=== PATIENT | male | born 2005 | race African-American/Black ===

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

== ENCOUNTER 2024-05-08 22:17 | Emergency (ER) | payer BC, SELFPAY ==
[2024-05-08 22:18] VITALS: BP 152/112; PULSE 81; RESP 20; TEMP 37; O2SAT 100; BMI 25.8
[2024-05-08] MEDS: AMOXICILLIN/CLAVULANATE POTASSIUM 875/125MG TABLET 1 EACH PO (22:40)
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
[2024-05-08 22:50] VITALS: BP 150/99; PULSE 78; RESP 20; TEMP 36.8; O2SAT 99
== END 2024-05-08 22:52 | disposition home or self-care (01) ==
PROVIDERS: Emergency Provider Student in an Organized Health Care Education/Training Program
DX: K02.9 Dental caries, unspecified (principal)
CPT/HCPCS: 99283

== ENCOUNTER 2024-07-28 13:20 | Emergency (ER) | payer BC, SELFPAY ==
[2024-07-28 13:21] VITALS: BP 159/91; PULSE 88; RESP 16; TEMP 36.9; O2SAT 98; BMI 26.9
--- NOTE | 2024-07-28 14:20 | CT_ITS ---
PROCEDURE INFORMATION: Exam: CT Abdomen And Pelvis With Contrast Exam date and time: 07/28/2024 3:04 PM Age: 19 years old Clinical indication: Abdominal pain; Additional info: Abdominal & back pain TECHNIQUE: Imaging protocol: Computed tomography of the abdomen and pelvis with contrast. Radiation optimization: All CT scans at this facility use at least one of these dose optimization techniques: automated exposure control; mA and/or kV adjustment per patient size (includes targeted exams where dose is matched to clinical indication); or iterative reconstruction. Contrast material: ISOVUE; Contrast volume: 75 ml; Contrast route: IV; COMPARISON: No relevant prior studies available. FINDINGS: Liver: The liver is normal in appearance. No focal liver mass or intrahepatic biliary dilatation. Gallbladder and biliary ducts: The gallbladder is unremarkable with no calcified stones visualized and no strandy inflammatory changes surrounding the gallbladder. Pancreas: The pancreas is normal in appearance. No evidence of pancreatic ductal dilatation. Spleen: Splenomegaly. The spleen measures about 13.8 cm. Adrenal glands: The adrenal glands are normal in appearance. Kidneys and ureters: The kidneys are normal in appearance. No evidence of hydronephrosis or hydroureter. No nephroureteral calculi are identified. Stomach and bowel: The small bowel loops are not thickened and are nondilated. The colon is unremarkable. Appendix: No evidence of appendicitis. Intraperitoneal space: Trace pelvic ascites. Vasculature: Unremarkable. No abdominal aortic aneurysm. Lymph nodes: Several small right lower quadrant mesenteric lymph nodes. Consider mesenteric lymphadenitis. Urinary bladder: Unremarkable as visualized. Reproductive: Unremarkable as visualized. Bones/joints: Unremarkable. No acute fracture. Soft tissues: Unremarkable. IMPRESSION: 1. Splenomegaly. 2. Trace deep pelvic ascites of indeterminate etiology. 3. Normal appendix. 4. Several small right lower quadrant mesenteric lymph nodes. Consider mesenteric lymphadenitis.
[2024-07-28 14:31] LABS: Basophils # 0.1 K/mm3 (0-0.2); Basophils % 1.4 % (0.1-2.0); Eosinophils # 0.1 K/mm3 (0.0-0.4); Eosinophils % 0.9 % (0.1-12.0); Hematocrit 46.7 % (42.0-52.0); Hemoglobin 15.4 g/dL (14.1-18.0); Lymphocytes % 50.4 % (10-50); Mean Corpuscular Hemoglobin 30.2 pg (27.0-31.2); Mean Corpuscular Volume 91.4 fl (80-94); Mean Platelet Volume 7.1 fl (7.4-10.4); Monocytes # 0.5 K/mm3 (0.1-1.0); Monocytes % 7.9 % (1.7-9.3); Neutrophils # 2.3 K/mm3 (1.8-7.8); Neutrophils % 39.4 % (37.0-80.0); Platelet Count 177 K/mm3 (142-424); Red Blood Count 5.11 M/mm3 (4.60-6.20); Red Cell Distribution Width 13.2 % (11.5-17.5); White Blood Count 5.9 K/mm3 (4.5-13.0)
[2024-07-28 14:33] LABS: Albumin Level 4.1 g/dl (3.5-5.0); Chloride 105 mmol/L (98-107); Potassium 3.5 mmoL/L (3.5-5.1); Sodium 137 mmol/L (136-145)
[2024-07-28 14:36] LABS: Alanine Aminotransferase 190 U/L (12-78); Albumin/Globulin Ratio 1.4 (1.1-1.8); Alkaline Phosphatase 79 U/L (38-126); Anion Gap 7.5 mEq/L (5-15); Aspartate Amino Transferase 83 U/L (17-59); Bilirubin,Total 0.8 mg/dl (0.2-1.3); Blood Urea Nitrogen 14 mg/dl (9-20); Carbon Dioxide 28 mmol/L (22.0-30.0); Creatinine Clearance Estimated 178 mL/min (50-200); Estimated Glomerular Filt Rate 123 ml/min (>60); GFR (African American) 149 ML/MIN (>60); MANUAL DIFFERENTIAL MANUAL DIFFERENTIAL (MANUAL DIFF); Total Protein,Serum 7.1 g/dl (6.3-8.2)
[2024-07-28 14:37] LABS: Amylase 89 U/L (30-110); Calcium 8.8 mg/dl (8.4-10.2); Creatine Kinase 89 U/L (55-170); Glucose 108 mg/dl (74-100); Lipase 37 U/L (23-300)
[2024-07-28] MEDS: 0.9 % SODIUM CHLORIDE 1000ML 1,000 ML 999 ML IV (14:38)
[2024-07-28] MEDS: ONDANSETRON 4MG/2ML VIAL 4 MG IV (14:38)
[2024-07-28] MEDS: KETOROLAC 30MG/ML VIAL 30 MG IV (14:38)
[2024-07-28 14:46] LABS: CKMB Relative Index 0.9 U/L (0-4.0); Creatine Kinase MB 0.8 ng/ml (0.0-2.03)
[2024-07-28 14:49] LABS: Troponin I < 0.01 ng/ml (0.00-0.034)
--- NOTE | 2024-07-28 14:59 | PC.NURSE ---
PT TO CT
[2024-07-28] MEDS: IOPAMIDOL-370 (76%);100ML BOTTLE 75 ML IV (15:04)
[2024-07-28] MEDS: SODIUM CHLORIDE 0.9% 10ML SYR (RAD ONLY) 10 ML IV (15:04)
--- NOTE | 2024-07-28 15:07 | PC.NURSE ---
PT RETURNED FROM CT
--- NOTE | 2024-07-28 15:11 | ED_ITS ---
<Statement entered by Aura Melchor DO - 07/28/24 18:27> I was consulted by the JESSENIA, and we discussed the complexity of the problems being addressed. I approved the treatment and management plan for this patient's care in the emergency department, thus performing a substantive portion of the medical decision making. Aura Melchor DO Discharge Plan Disposition Patient Disposition: Home, Self-Care Condition: Good Prescriptions Prescriptions: New ondansetron 4 mg tablet,disintegrating 4 mg PO DAILY 4 Days Qty: 4 0RF No Action prazosin 1 mg capsule 1 mg PO QHS Qty: 30 1RF aripiprazole [Abilify] 10 mg tablet See Rx Instructions PO QHS Qty: 30 1RF Rx Instructions: take 1/2 tablet; then starting on 05/12/21 take whole tablet PO every day at bedtime; amoxicillin-pot clavulanate 875-125 mg tablet 1 tab PO BID 10 Days Qty: 20 0RF Referrals Follow up/Referrals: Chico Wood MD [Staff Physician] - See instructions Provider,MD Vero [Primary Care Provider] - See instructions Activity Restrictions/Add. Instructions Additional Instructions/Restrictions: Increase fluids and rest. Take Zofran for nausea as needed. Please follow with your primary care on Tuesday for further instructions. I suggest keeping your appointment for the liver ultrasound as scheduled. Call to follow-up with Dr. Wood the GI doctor. Clinical Impressions Clinical Impression: Viral gastroenteritis, Acute mesenteric lymphadenitis Instructions Patient Instructions: DI for Acute Abdominal Pain Print Language Print Language: Micronesian Discharge ED Provider: Aura Melchor General Adult HPI <Leann Rueda (ED), CRYOGENICS REPAIRER - Last Filed: 07/28/24 17:54> General Chief complaint: Abdominal Pain Stated complaint: Abdominal Pain Time Seen by Provider: 07/28/24 14:15 Mode of Arrival: Ambulatory Source of Information: Patient Limitations: No Limitations Description of Symptoms (Recalled from ER Triage Doc. by RN): belly pain,back pain History of Present Illness HPI narrative: This is a 19-year-old male who presents to the ED today for complaint of 3 weeks of abdominal pain. He states that it is in his lower abdomen that moves to his right back. He states that he has been having nausea and vomiting for the past 3 days. Every time he eats or drinks he vomits. He tells me he is even vomiting water at this time. Patient has a primary care in [place] and he went to her recently and had blood in his urine. She also told him that his liver enzymes were elevated. He is scheduled for an ultrasound on his liver on Tuesday but was told if pain got worse he was to come in to the ED. Patient does admit to some dizziness and lightheadedness. No other associated signs or symptoms at this time. Related Data Previous Rx's ?Medication ?Instructions ?Recorded aripiprazole 10 mg tablet (Abilify) See Rx Instructions PO QHS #30 tabs 04/28/21 prazosin 1 mg capsule 1 mg PO QHS #30 caps 04/28/21 amoxicillin 875 mg-potassium 1 tab PO BID 10 days #20 tabs 05/08/24 clavulanate 125 mg tablet ondansetron 4 mg disintegrating 4 mg PO DAILY 4 days #4 tabs 07/28/24 tablet Allergies Allergy/AdvReac Type Severity Reaction Status Date / Time No Known Allergies Allergy Unverified 01/16/21 13:17 PFSH <Leann Rueda (ED), CRYOGENICS REPAIRER - Last Filed: 07/28/24 17:54> [facility] Disclaimer: The information contained in this section may have been updated after the patient was seen, as this information can be updated by other users. Social History (Updated 05/08/24 @ 22:41 by Mi Maldonado MD) Smoking Status: Never smoker alcohol intake: never substance use type: denies use current occupational status: student Travel in the last 8 weeks: None number of children: 0 <Leann Rueda (ED), CRYOGENICS REPAIRER - Last Filed: 07/28/24 17:54> ROS Obtained: Yes Systems reviewed as appropriate & no additional complaints except as documented Constitutional Constitutional: Reports system reviewed and no additional complaints, except as documented and Reports as per HPI Physical Exam <Leann Rueda (ED), CRYOGENICS REPAIRER - Last Filed: 07/28/24 17:54> General General appearance: alert and in no apparent distress Head Head exam: atraumatic and normocephalic Eye Eye exam: Present normal appearance, PERRL and EOMI ENT ENT exam: Present normal exam, normal oropharynx and mucous membranes moist Neck Neck exam: Present normal inspection, full ROM and trachea midline Chest Chest inspection: Present normal inspection Respiratory Respiratory exam: Present normal lung sounds bilaterally Cardiovascular Cardiovascular exam: Present regular rate, normal rhythm, normal heart sounds, +S1 and +S2 Abdominal Exam Abdominal exam: Present soft, tenderness (Patient has tenderness across the entire low abdomen) and normal bowel sounds Extremities Exam Extremities exam: Present normal inspection, full ROM and normal capillary refill Back Exam Back exam: Present normal inspection Neurological Exam Neurological exam: Present alert, oriented X3 and normal gait Skin Skin exam: Present warm, dry and intact Medical Decision Making <Leann Rueda (ED), CRYOGENICS REPAIRER - Last Filed: 07/28/24 17:54> Medical Records Screening: Per USPSTF and CDC recommendations, given the prevalence of disease in our region, it is our hospital?s policy to screen for HIV and viral Hepatitis for all patients aged 18 and over and those with ongoing risk factors. Musa Inquiry Pt receiving controlled substance: No Musa was queried for this patient: No Vital Signs: 07/28/24 13:21 07/28/24 16:35 Temperature 98.4 F 98.3 F Temperature Source Oral Pulse Rate 72 Pulse Rate [Right] 88 Respiratory Rate 16 18 Blood Pressure 129/77 Blood Pressure [Right Arm] 159/91 H Blood Pressure Mean [Right Arm] 113 02 Sat by Pulse Oximetry 98 Lab Data Lab Results 07/28/24 13:25: WBC 5.9, RBC 5.11, Hgb 15.4, Hct 46.7, MCV 91.4, MCH 30.2, MCHC 33.0, RDW 13.2, Plt Count 177, MPV 7.1 L, Neut % (Auto) 39.4, Lymph % (Auto) 50.4 H, Hyde % (Auto) 7.9, Eos % (Auto) 0.9, Baso % (Auto) 1.4, Neut # (Auto) 2.3, Lymph # (Auto) 3.0, Hyde # (Auto) 0.5, Eos # (Auto) 0.1, Baso # (Auto) 0.1, Total Counted 100, Neutrophils % (Manual) 47, Lymphocytes % (Manual) 50, Monocytes % (Manual) 3, Platelet Estimate Normal, RBC Morphology Normal, Sodium 137, Potassium 3.5, Chloride 105, Carbon Dioxide 28, Anion Gap 7.5, BUN 14, Creatinine 0.80, Estimated Creat Clear 178, Estimated GFR 123, Est GFR ( Amer) 149, Glucose 108 H, Calcium 8.8, Total Bilirubin 0.8, AST 83 H, ALT 190 H, Alkaline Phosphatase 79, Total Creatine Kinase 89, CK-MB (CK-2) 0.8, CK-MB (CK- 2) Rel Index 0.9, Troponin I < 0.01, Total Protein 7.1, Albumin 4.1, Globulin 3.0, Albumin/Globulin Ratio 1.4, Amylase 89, Lipase 37 07/28/24 15:30: Urine Color Yellow, Urine Appearance Clear, Urine pH 6.5, Ur Specific [place] 1.010, Urine Protein Negative, Urine Glucose (UA) Negative, Urine Ketones Negative, Urine Blood Negative, Urine Nitrate Negative, Urine Bilirubin Negative, Urine Urobilinogen 4.0, Ur Leukocyte Esterase Negative, Urine RBC Occasional, Urine WBC None, Ur Squamous Epith Cells None, Urine Bacteria None 07/28/24 13:25 07/28/24 13:25 Orders (Tests/Meds): ED MEDICATIONS Discontinued Medications Generic Name Dose Route Start Last Admin Trade Name Freq PRN Reason Stop Dose Admin Sodium Chloride 1,000 mls @ 999 mls/hr 07/28/24 14:30 07/28/24 14:38 Sod Chlor 0.9% 1000ml Bag IV 07/28/24 15:30 999 mls/hr .Q1H1M PONCHO Administration Iopamidol 75 ml 07/28/24 15:03 07/28/24 15:04 Iopamidol-370 (76%);100ml Bottle IV 07/28/24 15:04 75 ml ONCE ONE Administration Ketorolac Tromethamine 30 mg 07/28/24 14:20 07/28/24 14:38 Ketorolac 30mg/Ml Vial IV 07/28/24 14:21 30 mg ONCE ONE Administration Ondansetron HCl 4 mg 07/28/24 14:20 07/28/24 14:38 Ondansetron 4mg/2ml Vial IV 07/28/24 14:21 4 mg ONCE ONE Administration Sodium Chloride 10 ml 07/28/24 15:03 07/28/24 15:04 Sodium Chloride 0.9% 10ml Syr (Rad Only) IV 07/28/24 15:04 10 ml ONCE ONE Administration ORDERS Category Date Time Status CT abdomen pelvis w con Stat Cat Scan 07/28/24 14:20 Completed Amylase Stat Lab 07/28/24 13:25 Completed Cardiac Enzymes Stat Lab 07/28/24 13:25 Completed Complete Blood Count Auto Diff Stat Lab 07/28/24 13:25 Completed Comprehensive Metabolic Panel Stat Lab 07/28/24 13:25 Completed HIV (1&2) Antibody Rapid Stat Lab 07/28/24 13:25 Received Hep C Ab with Reflex to RNA Stat Lab 07/28/24 13:25 Received Lipase Stat Lab 07/28/24 13:25 Completed Urinalysis and Microscopic Stat Lab 07/28/24 15:30 Completed Medical Decision Narrative: Insert review patient is a 19-year-old male presenting to the emergency department for evaluation of lower abdominal pain radiating to right back, nausea and vomiting. Patient is hemodynamically stable and nontoxic-appearing upon arrival, afebrile. Differential diagnosis includes kidney stone, bowel obstruction, UTI, amongst other things. Workup will be conducted with hematologic labs, specific imaging, provocative tests. Initial inventions include crystalloid bolus, nausea meds. Initial workup reviewed by me [hematologic labs are remarkable for:]. [Imaging informally interpreted by me and remarkable for:] [Formal imaging read remarkable for:] Upon repeat evaluation [patient's pain is improved, appears better perfused, appears the same, appears worse, etc.]. Due to this [additional interventions, patient is appropriate for discharge, patient requires admission, etc.]. [ If patient requires admission or consultation say I had an interactive discussion with X Consideration of test and reason for deferment Putting patient in observation care Social determinants of health making workup or disposition difficult (undomiciled, polysubstance abuse, etc.) Independently reviewing hospital records, previous imaging, you must explicitly state what you are reviewing (example, cardiology consultation note from May 2023) <Aura Melchor, DO - Last Filed: 07/28/24 18:27> Vital Signs: 07/28/24 13:21 07/28/24 16:35 Temperature 98.4 F 98.3 F Temperature Source Oral Pulse Rate 72 Pulse Rate [Right] 88 Respiratory Rate 16 18 Blood Pressure 129/77 Blood Pressure [Right Arm] 159/91 H Blood Pressure Mean [Right Arm] 113 02 Sat by Pulse Oximetry 98 Lab Data Lab Results 07/28/24 13:25: WBC 5.9, RBC 5.11, Hgb 15.4, Hct 46.7, MCV 91.4, MCH 30.2, MCHC 33.0, RDW 13.2, Plt Count 177, MPV 7.1 L, Neut % (Auto) 39.4, Lymph % (Auto) 50.4 H, Hyde % (Auto) 7.9, Eos % (Auto) 0.9, Baso % (Auto) 1.4, Neut # (Auto) 2.3, Lymph # (Auto) 3.0, Hyde # (Auto) 0.5, Eos # (Auto) 0.1, Baso # (Auto) 0.1, Total Counted 100, Neutrophils % (Manual) 47, Lymphocytes % (Manual) 50, Monocytes % (Manual) 3, Platelet Estimate Normal, RBC Morphology Normal, Sodium 137, Potassium 3.5, Chloride 105, Carbon Dioxide 28, Anion Gap 7.5, BUN 14, Creatinine 0.80, Estimated Creat Clear 178, Estimated GFR 123, Est GFR ( Amer) 149, Glucose 108 H, Calcium 8.8, Total Bilirubin 0.8, AST 83 H, ALT 190 H, Alkaline Phosphatase 79, Total Creatine Kinase 89, CK-MB (CK-2) 0.8, CK-MB (CK- 2) Rel Index 0.9, Troponin I < 0.01, Total Protein 7.1, Albumin 4.1, Globulin 3.0, Albumin/Globulin Ratio 1.4, Amylase 89, Lipase 37 07/28/24 15:30: Urine Color Yellow, Urine Appearance Clear, Urine pH 6.5, Ur Specific [place] 1.010, Urine Protein Negative, Urine Glucose (UA) Negative, Urine Ketones Negative, Urine Blood Negative, Urine Nitrate Negative, Urine Bilirubin Negative, Urine Urobilinogen 4.0, Ur Leukocyte Esterase Negative, Urine RBC Occasional, Urine WBC None, Ur Squamous Epith Cells None, Urine Bacteria None Orders (Tests/Meds): ED MEDICATIONS Discontinued Medications Generic Name Dose Route Start Last Admin Trade Name Freq PRN Reason Stop Dose Admin Sodium Chloride 1,000 mls @ 999 mls/hr 07/28/24 14:30 07/28/24 14:38 Sod Chlor 0.9% 1000ml Bag IV 07/28/24 15:30 999 mls/hr .Q1H1M PONCHO Administration Iopamidol 75 ml 07/28/24 15:03 07/28/24 15:04 Iopamidol-370 (76%);100ml Bottle IV 07/28/24 15:04 75 ml ONCE ONE Administration Ketorolac Tromethamine 30 mg 07/28/24 14:20 07/28/24 14:38 Ketorolac 30mg/Ml Vial IV 07/28/24 14:21 30 mg ONCE ONE Administration Ondansetron HCl 4 mg 07/28/24 14:20 07/28/24 14:38 Ondansetron 4mg/2ml Vial IV 07/28/24 14:21 4 mg ONCE ONE Administration Sodium Chloride 10 ml 07/28/24 15:03 07/28/24 15:04 Sodium Chloride 0.9% 10ml Syr (Rad Only) IV 07/28/24 15:04 10 ml ONCE ONE Administration ORDERS Category Date Time Status CT abdomen pelvis w con Stat Cat Scan 07/28/24 14:20 Completed Amylase Stat Lab 07/28/24 13:25 Completed Cardiac Enzymes Stat Lab 07/28/24 13:25 Completed Complete Blood Count Auto Diff Stat Lab 07/28/24 13:25 Completed Comprehensive Metabolic Panel Stat Lab 07/28/24 13:25 Completed HIV (1&2) Antibody Rapid Stat Lab 07/28/24 13:25 Received Hep C Ab with Reflex to RNA Stat Lab 07/28/24 13:25 Received Lipase Stat Lab 07/28/24 13:25 Completed Urinalysis and Microscopic Stat Lab 07/28/24 15:30 Completed Medical Decision Narrative: patient is a 19-year-old male presenting to the emergency department for evaluation of lower abdominal pain radiating to right back, nausea and vomiting. Patient is hemodynamically stable and nontoxic-appearing upon arrival, afebrile. Differential diagnosis includes kidney stone, bowel obstruction, UTI, amongst other things. Workup will be conducted with hematologic labs, specific imaging, provocative tests. Initial inventions include crystalloid bolus, nausea meds. Initial workup reviewed by me and patient had mild transaminitis noted. He had trace fluid fluid in the pelvis on CT scan with mesenteric adenitis but no other acute findings. Gallbladder and liver are normal, and no evidence of other acute surgical pathology. Urinalysis is clean. On reassessment, patient is able to tolerate oral intake. He is feeling better. Ultimately I feel he likely has a gastroenteritis causing lab abnormalities and symptoms. At this time, feel that he is appropriate for discharge home with symptomatic management and instructions for close outpatient follow-up. He was given strict return precautions. He was discharged after all questions were answered. Critical Care <Leann Rueda (ED), CRYOGENICS REPAIRER - Last Filed: 07/28/24 17:54> Critical Care Time Critical Care Time: No
[2024-07-28 15:27] LABS: Lymphocytes % 50 % (10-50); Monocytes % 3 % (2-9); Neutrophils % 47 % (42-76); Platelet Estimate Normal; RBC Morphology Normal; Total Cells Counted 100
[2024-07-28 15:48] LABS: Microscopic, Urine URINE MICROSCOPIC (MICROSCOPIC)
[2024-07-28 15:49] LABS: Appearance,Urine CLEAR (Clear); Bilirubin,Urine Negative (Negative); Blood, Urine Negative (Negative); Color,Urine YELLOW (Yellow); Glucose,Urine (UA) Negative (Negative); Ketones,Urine Negative (Negative); Leukocyte Esterase,Urine Negative (Negative); Nitrate,Urine Negative (Negative); PH,Urine 6.5 (5.0-8.5); Protein,Urine Negative (Negative)
[2024-07-28 16:02] LABS: RBC,Urine Occasional #/hpf (0-3)
[2024-07-28 16:35] VITALS: BP 129/77; PULSE 72; RESP 18; TEMP 36.8; O2SAT 98
[2024-07-29 08:56] LABS: HIV (1&2) Antibody Rapid NONREACTIVE (NONREACTIVE)
[2024-07-31 05:10] LABS: HCV Ab Non Reactive (Non Reactive)
== END 2024-07-28 16:38 | disposition home or self-care (01) ==
PROVIDERS: Nurse Practitioner; Student in an Organized Health Care Education/Training Program; Emergency Provider Emergency Medicine
DX: A08.4 Viral intestinal infection, unspecified (principal); I88.0 Nonspecific mesenteric lymphadenitis; R42 Dizziness and giddiness; R10.30 Lower abdominal pain, unspecified
CPT/HCPCS: 74177; 80053; 81001; 82150; 82550; 82553; 83690; 84484; 85007; 85025; 85027; 86803; 87389; 96361; 96374; 96375; 99285; J1885; J2405; J7030; Q9967

== ENCOUNTER 2024-08-26 15:38 | Emergency (ER) | payer BC, SELFPAY ==
[2024-08-26 15:57] VITALS: BP 143/96; PULSE 84; RESP 20; TEMP 36.8; O2SAT 97; BMI 24.8
--- NOTE | 2024-08-26 16:02 | EXP.UTC ---
Discharge Plan Disposition Patient Disposition: Home, Self-Care Condition: Good Prescriptions Prescriptions: No Action prazosin 1 mg capsule 1 mg PO QHS Qty: 30 1RF aripiprazole [Abilify] 10 mg tablet See Rx Instructions PO QHS Qty: 30 1RF Rx Instructions: take 1/2 tablet; then starting on 05/12/21 take whole tablet PO every day at bedtime; ondansetron 4 mg tablet,disintegrating 4 mg PO DAILY 4 Days Qty: 4 0RF amoxicillin-pot clavulanate 875-125 mg tablet 1 tab PO BID 10 Days Qty: 20 0RF Referrals Follow up/Referrals: Provider,Referral, MD [Primary Care Provider] - See instructions Activity Restrictions/Add. Instructions Additional Instructions/Restrictions: Drink plenty of fluids. Follow up with your regular doctor. GO TO THE ER FOR ANY WORSENING SYMPTOMS Clinical Impressions Clinical Impression: Exposure to STD Instructions Patient Instructions: Facts About Sexually Transmitted Infections Print Language Print Language: Upper Sorbian Discharge ED Provider: Tobin Santoyo [facility] General Stated complaint: STD testing Mode of Arrival: Ambulatory Source of Information: Patient Time Seen by Provider: 08/26/24 16:02 Description of Symptoms (Recalled from Triage Doc. by RN): STI SCREENING D/T EXPOSURE HEENT Symptoms (Recalled from RN notes): No Resp Symptoms (Recalled from RN notes): No Skin Symptoms (Recalled from RN notes): No MS Symptoms (Recalled from RN notes): No Functional Status (Recalled from RN notes): WNL History of Present Illness Provider Complaint: He states that he was notified by a sex partner that he has been exposed to an std. He does not know which std he has been exposed to. He denies any symptoms or complaints. Related Data Previous Rx's ?Medication ?Instructions ?Recorded aripiprazole 10 mg tablet (Abilify) See Rx Instructions PO QHS #30 tabs 04/28/21 prazosin 1 mg capsule 1 mg PO QHS #30 caps 04/28/21 amoxicillin 875 mg-potassium 1 tab PO BID 10 days #20 tabs 05/08/24 clavulanate 125 mg tablet ondansetron 4 mg disintegrating 4 mg PO DAILY 4 days #4 tabs 07/28/24 tablet Allergies Allergy/AdvReac Type Severity Reaction Status Date / Time No Known Allergies Allergy Unverified 01/16/21 13:17 Worker's Comp Is this a Worker's Comp case?: No [facility] Disclaimer: The information contained in this section may have been updated after the patient was seen, as this information can be updated by other users. Social History (Updated 05/08/24 @ 22:41 by Mi Maldonado MD) Smoking Status: Never smoker alcohol intake: never substance use type: denies use current occupational status: student Travel in the last 8 weeks: None number of children: 0 ROS Obtained: Yes All systems reviewed & no additional complaints except as documented Constitutional Constitutional: Denies chills and Denies fever(s) Eyes Eyes: Denies eye discharge ENT Ears, Nose, Mouth, and Throat: Denies dizziness, Denies otalgia and Denies sore throat Cardiovascular Cardiovascular: Denies chest pain Respiratory Respiratory: Denies shortness of breath, Denies chest congestion, Denies cough, Denies stridor and Denies wheezing Gastrointestinal Gastrointestingal: Denies nausea or vomiting Musculoskeletal Musculoskeletal: Reports system reviewed and no additional complaints, except as documented and Denies arthralgias Integumentary/Breasts Skin/Breast: Denies rash Neurologic Neurologic: Denies dizziness and Denies paresthesias Allergic/Immunologic Allergic/Immunologic: Denies wheezing Physical Exam General General appearance: alert and in no apparent distress Head Head exam: atraumatic, normocephalic and normal inspection Eye Eye exam: Present normal appearance, PERRL and EOMI ENT ENT exam: Present normal exam, normal oropharynx, mucous membranes moist, TM's normal bilaterally and normal external ear exam Neck Neck exam: Present normal inspection, full ROM and trachea midline; Absent meningismus or lymphadenopathy Chest Chest inspection: Present normal inspection and symmetric chest wall rise; Absent tenderness Respiratory Respiratory exam: Present normal lung sounds bilaterally; Absent respiratory distress Cardiovascular Cardiovascular exam: Present regular rate and normal rhythm; Absent JVD Abdominal Exam Abdominal exam: Present soft and normal bowel sounds; Absent distention, tenderness or guarding Extremities Exam Extremities exam: Present normal inspection, full ROM and normal capillary refill; Absent calf tenderness Back Exam Back exam: Present normal inspection; Absent tenderness Neurological Exam Neurological exam: Present alert and oriented X3 Psychiatric Psychiatric exam: Present normal affect and normal mood Skin Skin exam: Present warm, dry, intact and normal color Lymphatic Lymphatic Findings: no adenopathy Medical Decision Making Medical Records Medical records reviewed: No I reviewed the patient's medical records. Screening: Per USPSTF and CDC recommendations, given the prevalence of disease in our region, it is our hospital?s policy to screen for HIV and viral Hepatitis for all patients aged 18 and over and those with ongoing risk factors. Musa Inquiry Pt receiving controlled substance: No Vital Signs: 08/26/24 15:57 Temperature 98.2 F Temperature Source Oral Pulse Rate [Right Brachial] 84 Respiratory Rate 20 Blood Pressure [Left Arm] 143/96 H Blood Pressure Mean [Left Arm] 111 02 Sat by Pulse Oximetry 97
[2024-08-26 16:40] VITALS: BP 143/96; PULSE 84; RESP 20; TEMP 36.8
[2024-08-26 17:37] LABS: HIV (1&2) Antibody Rapid NONREACTIVE (NONREACTIVE)
[2024-08-28 08:59] LABS: HBsAg Screen Negative (Negative); HCV Ab Non Reactive (Non Reactive); Hep A Ab, IGM Negative (Negative); Hep B Core Ab, IgM Negative (Negative)
[2024-08-28 11:15] LABS: Rapid Plasma Reagin Ab Titer Non Reactive titer (NonRea<1:1)
[2024-08-28 21:12] LABS: Neisseria gonorrhoeae, NAA Negative (Negative)
== END 2024-08-26 16:45 | disposition home or self-care (01) ==
PROVIDERS: Emergency Provider Nurse Practitioner Family
DX: Z20.2 Contact with and (suspected) exposure to infections with a predominantly sexual mode of transmission (principal)
CPT/HCPCS: 80074; 86593; 87086; 87389; 87491; 87591; 99213; G0381